=== PATIENT | female | born 1990 | race Caucasian/White ===

== ENCOUNTER 2022-05-08 10:04 | Outpatient (CLI) | payer OTHER, SELFPAY | END 2022-05-08 10:05 | disposition home or self-care (01) | LOC: ANHAUDIO 10:06 | PROVIDERS: PCP Family Medicine; Visit Provider Otolaryngology | DX: H69.83 Other specified disorders of Eustachian tube, bilateral (principal); H90.0 Conductive hearing loss, bilateral | CPT/HCPCS: 92557; 92567 ==

== ENCOUNTER 2022-06-07 13:14 | Outpatient (CLI) | payer OTHER, SELFPAY ==
--- NOTE | ~2022-06-07 | CT_ITS ---
EXAMINATION: CTA brain DATE: 06/07/2022 13:47 INDICATION: Pulsatile tinnitus. TECHNIQUE: Computed tomographic angiography (CTA) of the head was performed without and with 100 mL O mnipaque-350 intravenous contrast. Automated exposure control and iterative reconstruction technique were employed. The dose-length product was 1053.13 mGy-cm. Maximum intensity projection 3D reconstru ctions were created. Volume-rendered 3D reconstructions of the intracranial arteries were created by the technologist on a separate workstation. COMPARISON: None. FINDINGS: There is no intracranial hemorrhage, acute infarction, or abnormal intracranial mass lesion . The ventricles are normal in size. The paranasal sinuses are clear. The orbits are normal. The tymp anic cavities are normal. The mastoid air cells are normal. Left vertebral artery is dominant. There is no significant stenosis of basilar artery or the posterior cerebral arteries. The posterior commun icating arteries are normal. There is no significant stenosis of the intracranial internal carotid ar teries or anterior or middle cerebral arteries. Anterior communicating artery is normal. There is no aneurysm. IMPRESSION: 1. Normal brain. No aneurysm or significant intracranial arterial stenosis. Reviewed, dictated and finalized at location A. ER
[2022-06-07 13:40] LABS: Estimated Glomerular Filt Rate > 60
== END 2022-06-07 13:15 | disposition home or self-care (01) ==
LOC: ANHIMG 13:17
PROVIDERS: PCP Internal Medicine Gastroenterology; Visit Provider Otolaryngology
DX: H93.A1 Pulsatile tinnitus, right ear (principal)
CPT/HCPCS: 70496; Q9967

== ENCOUNTER 2022-09-27 13:37 | Emergency (ER) | payer OTHER, SELFPAY ==
--- NOTE | 2022-09-27 13:42 | ED.BACK ---
HPI - Back Pain/Injury General Chief Complaint: Back Pain/Injury Stated Complaint: back pain Time Seen by Provider: 09/27/22 13:42 Source: patient Mode of arrival: ambulatory Limitations: no limitations History of Present Illness HPI Narrative: Jeanette is a 31-year-old female patient presenting to the clinic today with complaints of upper and lower back pain x3 days. She reports she received a test to to her right lateral ankle on Sunday and stated that she had turned her ankle inward and this caused her back to go out. She is stating that she is having pain in the upper and lower back. Pain is worse with flexion and extension of the back. Also reports that she is having some discomfort when taking deep breaths. She denies any saddle anesthesia or loss of bowel or bladder. Related Data Home Medications Medication Instructions Recorded Confirmed etonogestrel 68 mg subdermal 1 implant subdermal ONCE 03/09/22 05/25/22 implant (Nexplanon) losartan 100 mg tablet 100 mg PO DAILY 03/09/22 05/25/22 atorvastatin 20 mg tablet mg 09/27/22 Allergies Allergy/AdvReac Type Severity Reaction Status Date / Time latex Allergy Unknown Verified 05/25/22 10:24 Review of Systems Review of Systems: Pertinent positives per HPI. Patient denies any fever, chills, rash, headache, visual changes, dizziness, cough, runny nose, sore throat, shortness of breath, chest pain, palpitations, nausea, vomiting, diarrhea, constipation, abdominal pain, or any urinary issues. [facility] Past Medical History Medical History FH: HTN (hypertension) Family History Family History Father Alcoholism Mother Asthma Diabetes mellitus Hypertension Heart disease Cerebrovascular accident Social History Social History Social History: Caffeine-soda daily Smoking status: Never smoker Alcohol intake: never Gender identity (if verbalized by the patient): Female Agree to blood products: Yes Comments At the time of my signature, I reviewed and agree with the nursing past medical, surgical, social, and family history. There is no relevant family history pertinent to the patient complaint. Exam Narrative: General: Well-developed, well nourished, in no apparent distress Head: Normocephalic, atraumatic. Cardio: Regular rate and rhythm, s1 and s2 normal, no murmur appreciated. Resp: Clear to auscultation bilaterally, no rhonchi, rales, wheezing or rubs. Musculoskeletal: No deformity, tender to palpation over midthoracic to lumbar sacral spine, tenderness to palpation to upper and lower paraspinous muscles, pain to the mid thoracic and lumbar spine and with flexion and extension of the back, grossly normal range of motion, patellar reflexes 2+ bilaterally, bilateral lower muscle strength strong and equal, peripheral pulse strong, no edema, no cyanosis, normal gait and station Course Course Emergency Course: Portions of this record may have been created with voice recognition software. Level of Care: Express Care Visit Vital Signs Vital signs: Vital Signs Temperature 37.1 C 09/27/22 13:46 Pulse Rate 99 09/27/22 13:46 Respiratory Rate 12 09/27/22 13:46 Blood Pressure 141/88 H 09/27/22 13:46 Pulse Oximetry 100 09/27/22 13:46 Oxygen Delivery Room Air 09/27/22 13:46 Temperature 37.1 C 09/27/22 13:47 Pulse Rate 99 09/27/22 13:47 Respiratory Rate 12 09/27/22 13:47 Blood Pressure 141/88 H 09/27/22 13:47 Pulse Oximetry 100 09/27/22 13:47 Oxygen Delivery Room Air 09/27/22 13:47 Vital signs reviewed MDM - Back Pain/Injury MDM Narrative Medical decision making narrative: At the time of visit patient is resting comfortably on the exam table. I suspect patient has a thoracic and lumbar strain. Will send in prescription fo
[2022-09-27 13:46] VITALS: BP 141/88; PULSE 99; RESP 12; TEMP 37.1; O2SAT 100
[2022-09-27 13:47] VITALS: BP 141/88; PULSE 99; RESP 12; TEMP 37.1; O2SAT 100
== END 2022-09-27 14:02 | disposition home or self-care (01) ==
PROVIDERS: Emergency Provider Nurse Practitioner Family; PCP Internal Medicine Gastroenterology
DX: S29.012A Strain of muscle and tendon of back wall of thorax, initial encounter (principal); S39.012A Strain of muscle, fascia and tendon of lower back, initial encounter; I10 Essential (primary) hypertension; X50.0XXA Overexertion from strenuous movement or load, initial encounter
CPT/HCPCS: 99213; G0463